=== PATIENT | male | born 1955 | race Caucasian/White ===

== ENCOUNTER → 2019-05-19 | Outpatient (CLI) | payer BC ==
--- NOTE | 2019-05-20 14:53 | PCVCIMAG ---
APPROVED REPORT Study performed: 05/19/2019 13:59:19 EXAM: Limited 2D, Doppler, and color-flow Echocardiogram Patient Location: Echo lab Status: routine BSA: 2.41 HR: 57 bpmBP: 156/92 mmHg Rhythm: Bradycardia, RBBB Other Information Study Quality: AdequateTechnically Limited Technically limited study due to body habitus. Indications Congestive Heart Failure Dyspnea Cardiomyopathy 2D Dimensions IVSd: 13.34 (7-11mm) LVDd: 63.11 mm PWd: 13.45 (7-11mm)Ascending Ao: 43.37 (22-36mm) LVDs: 53.03 (25-40mm) Left Atrium: 42.21 (27-40mm) Aortic Root: 35.59 mm LV Single Plane 4CH: 17.00 % LV Single Plane 2CH: 25.33 % Aortic Valve AoV Peak Jony.: 1.32 m/s AO Peak Gr.: 6.93 mmHg Tricuspid Valve TR Peak Jony.: 3.17 m/s TR Peak Gr.: 40.14 mmHg Left Ventricle Left ventricle is dilated. Mild concentric left ventricular hypertrophy. Left ventricular ejection fraction is severely decreased. LVEF is 25-30%. This study is not technically sufficient to allow evaluation of the LV diastolic function. Right Ventricle Right ventricle is dilated. Atria Left atrium is mild-moderately dilated. Right atrium is moderately dilated. Tricuspid Valve Mild to moderate tricuspid regurgitation with PAP of 50 mmHg. Great Vessels The aortic root is normal in size. Ascending aorta is dilated to 4.4 cm. Pericardium There is no pleural effusion.
== END | disposition home or self-care (01) ==
LOC: PCVCIMAG 13:52
PROVIDERS: ATTEND Internal Medicine
DX: I50.9 Heart failure, unspecified (principal); R06.00 Dyspnea, unspecified; I42.9 Cardiomyopathy, unspecified
CPT/HCPCS: 93308